=== PATIENT | male | born 1965 ===

== ENCOUNTER 2016-09-04 15:10 | Inpatient (IN) ==
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
[2016-09-04] MEDS ORDERED: ONDANSETRON 4 MG/2 ML VIAL IV PRN (16:31)
[2016-09-04] MEDS ORDERED: MORPHINE 2 MG/1 ML SYRINGE IV PRN (16:31)
[2016-09-04] MEDS ORDERED: GLUCAGON 1 MG VIAL IM PRN (16:31)
[2016-09-04] MEDS ORDERED: DEXTROSE 50% 25 GM/50 ML VIAL IV PRN (16:31)
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
[2016-09-04] MEDS ORDERED: SENNA 8.6 MG TABLET PO PRN (17:39)
--- NOTE | 2016-09-04 17:49 | XRay Report ---
Portable chest. Indication: Shortness of breath comparison: Exam from outside, earlier today. The heart is enlarged. The pulmonary vasculature is prominent. The lung carbajal are free of infiltrate. No pneumothorax or pleural effusion. Impression: Cardiomegaly and venous congestion. PROCEDURE INTERPRETED AT [facility] DEPARTMENT OF RADIOLOGY Final Report Signed by: Dr. Jackelin Durant
[2016-09-04 18:32] LABS: Troponin I Only < 0.015 NG/ML (0.00-0.045)
[2016-09-04] MEDS: ENOXAPARIN 40 MG/0.4 ML SYRINGE SUBCUT SCH (19:12)
[2016-09-04] MEDS: FUROSEMIDE 40 MG/4 ML VIAL IV SCH (19:12)
[2016-09-04] MEDS: CARVEDILOL 3.125 MG TABLET PO SCH (20:48)
[2016-09-04] MEDS: ATORVASTATIN 40 MG TABLET PO SCH (20:48)
[2016-09-04] MEDS: PREGABALIN 75 MG CAPSULE PO SCH (20:48)
[2016-09-04] MEDS: INSULIN LISPRO 100 UNIT/ML SUBCUT SCH (20:49)
[2016-09-05 01:19] LABS: Troponin I Only < 0.015 NG/ML (0.00-0.045)
[2016-09-05 06:13] LABS: Troponin I Only < 0.015 NG/ML (0.00-0.045)
[2016-09-05 06:29] LABS: Calcium 8.6 MG/DL (8.5-10.1); Magnesium 2.3 MG/DL (1.8-2.4); Osmolality,Calculated 279.3 MOS/KG (273-304); Potassium 3.8 MMOL/L (3.5-5.1); Risk Ratio 3.65; Thyroid Stimulating Hormone 3.29 uIU/ml (0.358-3.74)
--- NOTE | 2016-09-05 07:20 | EKG Report ---
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
[2016-09-05] MEDS ORDERED: MAGNESIUM SULF RIDER 2 GM in PREMIX 1 EACH IV PRN (07:24)
[2016-09-05] MEDS ORDERED: diphenhydrAMINE CAP 25 MG CAPSULE PO ONE (07:24)
[2016-09-05] MEDS ORDERED: DIAZEPAM 5 MG TABLET PO ONE (07:24)
[2016-09-05] MEDS ORDERED: POTASSIUM CHLORIDE RIDER 10 MEQ in PREMIX 1 EACH IV PRN (07:24)
[2016-09-05 07:29] LABS: Basophils % 0.3 % (0.0-0.8); Eosinophils # 0.2 10*3/uL (0.0-0.87); Eosinophils % 2.3 % (0.00-10.9); Immature Granulocytes % 0.7 %; Immature Granulocytes Absolute 0.05 #; Lymphocytes # 1.5 10*3/uL (1.4-4.0); Lymphocytes % 20.2 % (21.2-54.2); Mean Corpuscular HGB Conc 34.3 GM/DL (32-36); Mean Corpuscular Hemoglobin 32 PG (27-34); Mean Corpuscular Volume 93.3 FL (87-102); Mean Platelet Volume 10.2 FL (9.6-12.0); Monocytes # 0.8 10*3/uL (0.11-0.8); Monocytes % 10.2 % (1.7-12.7); Neutrophils # 4.9 10*3/uL (1.4-7.4); Neutrophils % 66.3 % (38.7-73.9); Platelet Count 239 T/CUMM (130-400); Red Blood Count 3.75 MC/CUMM (3.8-5.5); Red Cell Distribution Width 12.8 % (9.3-17.3); White Blood Count 7.4 T/CUMM (4-12)
[2016-09-05 07:37] LABS: PT Patient Result 10.8 SECS
[2016-09-05 08:06] LABS: Calcium 8.6 MG/DL (8.5-10.1); Magnesium 2.2 MG/DL (1.8-2.4); Osmolality,Calculated 278.4 MOS/KG (273-304); Potassium 3.9 MMOL/L (3.5-5.1)
[2016-09-05] MEDS: INSULIN LISPRO 100 UNIT/ML SUBCUT SCH ×4 (08:18→20:13)
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
[2016-09-05] MEDS ORDERED: POTASSIUM CHLORIDE 10 MEQ TABLET PO SCH (09:00)
[2016-09-05] MEDS ORDERED: PANTOPRAZOLE 40 MG TABLET PO SCH (09:00)
[2016-09-05] MEDS: CLOPIDOGREL 75 MG TABLET PO SCH (09:19)
[2016-09-05] MEDS: PREGABALIN 75 MG CAPSULE PO SCH ×2 (09:19→20:12)
[2016-09-05] MEDS: ASPIRIN EC 81 MG TABLET PO SCH (09:19)
[2016-09-05] MEDS: NITROGLYCERIN 2% OINT 1 INCH/GM PACK TOP SCH ×3 (09:19→20:13)
[2016-09-05] MEDS: FUROSEMIDE 40 MG/4 ML VIAL IV SCH (09:19)
[2016-09-05] MEDS: CARVEDILOL 3.125 MG TABLET PO SCH ×2 (09:19→20:12)
[2016-09-05] MEDS: PANTOPRAZOLE 40 MG TABLET PO SCH (09:21)
[2016-09-05] MEDS ORDERED: LIDOCAINE 1% 20 ML VIAL ONE (10:49)
[2016-09-05] MEDS ORDERED: HEPARIN/NACL 0.9% 2 UNITS/ML 1,000 ML IV ONE (10:49)
[2016-09-05] MEDS ORDERED: SODIUM CHLORIDE 0.9% 1,000 ML IV SCH (11:30)
[2016-09-05] MEDS ORDERED: PROPOFOL 200 MG/20 ML VIAL IV ONE (11:31)
[2016-09-05] MEDS ORDERED: LIDOCAINE 100 MG/5 ML SYRINGE ONE (11:31)
[2016-09-05] MEDS ORDERED: ETOMIDATE 20 MG/10 ML VIAL IV ONE (11:31)
[2016-09-05] MEDS ORDERED: VERAPAMIL 5 MG/2 ML VIAL ONE (11:49)
[2016-09-05] MEDS ORDERED: NITROGLYCERIN DRIP 50 MG/250 ML BOTTLE IV ONE (11:49)
--- NOTE | 2016-09-05 12:20 | Cardiac Catheterization ---
Date of Procedure:: 09/05/16 Procedure: CLINICAL HISTORY: The patient has a history of morbid obesity and coronary artery disease with chest pain symptoms. He is physically to large for noninvasive cardiac assessment, weighing greater than 450 pounds, and is proceeding to cardiac catheterization via the right radial approach for definitive coronary artery assessment and possible revascularization. PROCEDURES PERFORMED: 1. Right radial percutaneous arteriotomy 2. Left heart catheterization 3. Resting hemodynamics 4. Left ventriculography. 5. Coronary arteriography 6. Hemoband placement DESCRIPTION OF PROCEDURE: After obtaining informed consent, the patient was taken to the operations label clerk, prepped and draped in the usual sterile manner. We accessed the right radial artery using modified Seldinger technique in the usual fashion. We placed a 6-Ind[place]ian slim sheath without difficulty. We then used a Tig catheter to engage the right coronary and left main coronary arteries to perform angiography in multiple orthogonal views. There were no problems or complications during the procedure. We then used an angled pigtail catheter to perform a left heart catheterization with left ventriculogram and pressure measurement in the usual fashion. After removing the catheter, we placed a HemoBand and removed the sheath without difficulty. There were no problems during the case. HEMODYNAMICS: Please see the accompanying data sheet. CORONARIES: The left main coronary artery is a large-caliber vessel which trifurcates into the left anterior descending left circumflex flexion ramus intermedius branches. The left main coronary artery is angiographically free of significant obstructive disease. The left circumflex coronary artery is a moderate to large caliber vessel which gives off to obtuse marginal branches. There is a stent in the distal vessel which is patent. There are mild luminal irregularities in this vessel but no significant focal obstruction is seen. The ramus intermedius branch is a moderate to large caliber vessel which courses over the anterolateral wall. The ramus intermedius is angiographically free of significant obstructive disease. The left anterior descending is a moderate to large caliber vessel which gives off a small to moderate size diagonal branch. The left anterior descending coronary artery is angiographically free of significant obstructive disease. The right coronary artery is a large-caliber vessel which gives of the posterior descending artery and the posterior lateral system. The right coronary artery is angiographically free of significant obstructive disease. LEFT VENTRICULOGRAPHY: Left ventriculogram shows left ventricular ejection fraction of approximately 55-60% with normal regional wall motion. IMPRESSION: 1. There is no significant obstructive coronary artery disease at this time. The patient's previous circumflex stent is patent. 2. Normal left ventricular ejection fraction. PLAN: The patient can be transferred back to his room for recovery. From a cardiac standpoint, he should be stable for discharge later today. Anesthesia: minimal conscious sedation, other (Because of the patient's morbid obesity and high risk for sedation, anesthesia manage his sedation.) Surgeon / Physician: Sam Kyle Estimated blood loss: minimal Disposition: ICU/CCU - Medications / Follow-up
--- NOTE | 2016-09-05 12:48 | Anesthesia Post-Op ---
Anesthesia Post OP - Post Ansesthetic Evaluation Patient seen in post op: Yes Resp: within normal limits CV: within normal limits Mental: within normal limits Temp: within normal limits Txka-Ku-Rkbrbavar: within normal limits Nausea and Vomiting: within normal limits Pain: within normal limits
--- NOTE | 2016-09-05 14:12 | ECHO Report ---
Romario Robins Exam Date: 09/05/2016 07:50 Referring Physician: Technologist: butch Peña ARDMS, RVT Age: 50 Ht (in): 68 Wt (lb): 458 Gender: M Exam Location: [facility] Echo Indications: Essential (primary) hypertension, Chest pain, unspecified, CHF, INDER, Pickwickian Syndrome BP: 132 / 67 HR: 70 Rhythm: Sinus Technical Quality: Very difficult study IMPRESSIONS This is a severely limited study secondary to the patient's morbid obesity with a weight of greater than 450 pounds. Normal left ventricular cavity size and function with left ventricular ejection fraction is estimated at 50-55%. No significant valvular heart disease is seen. MEASUREMENTS (Male / Female) Normal Values 2D ECHO LV Diastolic Diameter PLAX 5.5 cm 4.2 - 5.9 / 3.9 - 5.3 cm LV Systolic Diameter PLAX 4.7 cm LV Fractional Shortening PLAX 13.9 % IVS Diastolic Thickness 1.5 cm 0.6 - 1.0 / 0.6 - 0.9 cm LVPW Diastolic Thickness 1.6 cm 0.6 - 1.0 / 0.6 - 0.9 cm RV Internal Dim ED PLAX 4.3 cm Aortic Root Diameter 4.2 cm LA Systolic Diameter LX 4.3 cm 3.0 - 4.0 / 2.7 - 3.8 cm FINDINGS Left Ventricle Normal left ventricular cavity size and function with left ventricular ejection fraction is estimated at 50-55%. Right Ventricle Poorly visualized. Right Atrium Poorly visualized Left Atrium The left atrium is mildly enlarged. Mitral Valve Grossly normal mitral valve without significant stenosis or prolapse. There is no significant mitral regurgitation. Aortic Valve Grossly normal aortic valve. Tricuspid Valve Grossly normal tricuspid valve. Pulmonic Valve Morphologically normal pulmonic valve without significant stenosis. There is no pulmonic regurgitation. Pericardium Grossly normal pericardium without effusion. Aorta Poorly visualized Sam Kyle (Electronically Signed) Final Date: 05 September 2016 14:10
--- NOTE | 2016-09-05 15:22 | Hospitalist Progress Note ---
Assessment and Plan (1) Chest pain Status: Acute Assessment and plan: Status post heart cath normal may be discharged home in a.m. Current Visit: Yes (2) INDER (obstructive sleep apnea) Status: Chronic Assessment and plan: Dr. Hernandez has seen him and recommends a chinstrap. Current Visit: Yes (3) CHF exacerbation Status: Acute Assessment and plan: BNP only 18 and echocardiogram normal no evidence to suggest congestive heart failure. Current Visit: Yes (4) Pickwickian syndrome Status: Acute Current Visit: Yes (5) Hypertension Status: Chronic Assessment and plan: cont coreg Current Visit: Yes Hospitalist: Subjective Interval history: Patient has no evidence of significant coronary disease. Patient is compliant with his CPAP at night but Dr. Hernandez is going to get him a better fitting mask. Exam - Constitutional Vitals: Period Temp Pulse Resp BP Sys/Nielsen Pulse Ox Last 24 Hr 97.4 F-98.0 F 58-77 12-27 96-152/51-114 93-98 Exam: Heart Rate-[RRR] Lungs-[CTAB but diminished] GI-[+bs soft, NT obese] Ext-[1+ edema] Neuro [Motor 5/5], [alert and oriented times 3] psych [normal mood and affect] General [no acute distress] Results - Labs CBC & BMP: 09/05/16 07:22 09/05/16 07:22 Lab Results: I have reviewed the past 24 hour labs - Diagnostic Findings Procedure: Ultrasound: report reviewed by me (EF of 55%)
[2016-09-05] MEDS: ENOXAPARIN 40 MG/0.4 ML SYRINGE SUBCUT SCH (16:57)
[2016-09-05] MEDS: ATORVASTATIN 40 MG TABLET PO SCH (20:12)
[2016-09-06] MEDS: NITROGLYCERIN 2% OINT 1 INCH/GM PACK TOP SCH ×2 (03:35→08:22)
[2016-09-06 05:04] LABS: Basophils % 0.3 % (0.0-0.8); Eosinophils # 0.2 10*3/uL (0.0-0.87); Eosinophils % 2.7 % (0.00-10.9); Hematocrit 36.9 VOL% (42.0-52.0); Hemoglobin 12.4 GM/DL (14.0-18.0); Immature Granulocytes % 0.6 %; Immature Granulocytes Absolute 0.04 #; Lymphocytes # 1.4 10*3/uL (1.4-4.0); Lymphocytes % 19.3 % (21.2-54.2); Mean Corpuscular HGB Conc 33.6 GM/DL (32-36); Mean Corpuscular Hemoglobin 31 PG (27-34); Mean Corpuscular Volume 93.2 FL (87-102); Mean Platelet Volume 10.8 FL (9.6-12.0); Monocytes # 0.6 10*3/uL (0.11-0.8); Neutrophils # 4.8 10*3/uL (1.4-7.4); Neutrophils % 68.1 % (38.7-73.9); Platelet Count 254 T/CUMM (130-400); Red Blood Count 3.96 MC/CUMM (3.8-5.5); Red Cell Distribution Width 12.5 % (9.3-17.3)
[2016-09-06 05:37] LABS: Calcium 8.8 MG/DL (8.5-10.1); Magnesium 2.2 MG/DL (1.8-2.4); Osmolality,Calculated 280.3 MOS/KG (273-304); Potassium 3.7 MMOL/L (3.5-5.1)
[2016-09-06] MEDS: INSULIN LISPRO 100 UNIT/ML SUBCUT SCH (07:45)
[2016-09-06] MEDS: PANTOPRAZOLE 40 MG TABLET PO SCH (08:21)
[2016-09-06] MEDS: PREGABALIN 75 MG CAPSULE PO SCH (08:21)
[2016-09-06] MEDS: ASPIRIN EC 81 MG TABLET PO SCH (08:21)
[2016-09-06] MEDS: CLOPIDOGREL 75 MG TABLET PO SCH (08:21)
[2016-09-06] MEDS: CARVEDILOL 3.125 MG TABLET PO SCH (08:21)
--- NOTE | 2016-09-06 08:26 | Discharge Summary ---
Hospital Course - Hospital Course Hospital Course: 50-year-old morbidly obese [place] male resents to the emergency room and [facility] with complaints of shortness of breath and chest pain. Patient has severe morbid obesity and severe obstructive sleep apnea. He is compliant with his CPAP machine. The chest pain that he was describing was substernal with no radiation with the sort associated shortness of breath. He has had a stent in the past and is already on Plavix and aspirin. Dr. Kyle was consulted and entered into the [employer] [facility] as he was too obese to fit and the machine for a stress test. Heart cath showed no significant coronary artery disease. Patient will be discharged home today. BNP was 18 and her EF was 55- 60%. Patient will be discharged home to follow-up with [facility] Dr. Rivera. - Time spent with patient Time with patient DS: Less than 30 minutes (25 min) Diagnosis - Discharge Diagnosis (1) Chest pain Status: Acute (2) INDER (obstructive sleep apnea) Status: Chronic (3) CHF exacerbation Status: Acute (4) Pickwickian syndrome Status: Acute (5) Hypertension Status: Chronic Discharge Plan - Discharge Data Disposition: Disch To Home/Self Care Condition at Discharge: Stable Discharge Diet: heart healthy, low salt diet Activity: resume usual activities as tolerated Hygiene: no restrictions Weight Bearing at Discharge: full weight bearing - Discharge Medications Continue Potassium Chloride 10 meq PO DAILY Aspirin [Ecotrin] 81 mg PO DAILY Clopidogrel [Plavix] 75 mg PO DAILY #30 tablet Senna Tab [Senokot] 1 tablet PO DAILY PRN PRN Reason: Constipation Pantoprazole Tab [Protonix Tab] 40 mg PO DAILY Atorvastatin [Lipitor] 40 mg PO BEDTIME Changed Carvedilol [Coreg] 3.125 mg PO BID #60 tablet Furosemide 40 mg PO QAM #0 Lisinopril 20 mg PO DAILY #0 Discontinued Naproxen Sodium [Aleve] 220 mg PO Q6HR PRN PRN Reason: knee pain - Follow Up or Referral Follow Up: Art Rivera MD [Physician] - 2 Weeks [facility] [Provider Group] - 2 Weeks - Forms/Instructions Exam - Constitutional Vitals: Period Temp Pulse Resp BP Sys/Nielsen Pulse Ox Last 24 Hr 96.9 F-98.0 F 56-74 15-25 96-139/51-86 93-98 General appearance: no acute distress, morbidly obese - Respiratory Respiratory exam: Present: clear to auscultation bilaterally. Absent: rhonchi, wheezes - Cardiovascular Cardiovascular exam: Present: regular rate and rhythm. Absent: systolic murmur - GI/Abdominal GI/Abdominal exam: Present: normal bowel sounds - Extremities Exam Extremities exam: Present: normal capillary refill, edema Discharge Results Procedures and tests throughout hospitalization: Pending Orders 09/04/16 18:46 MRSA Surveillence, Inf Control Routine 09/05/16 07:28 CL heart Routine Labs on day of discharge: Labs from last 24 hours 09/06/16 09/06/16 09/05/16 04:26 04:26 19:59 WBC 7.0 RBC 3.96 Hgb 12.4 L Hct 36.9 L MCV 93.2 MCH 31 MCHC 33.6 RDW 12.5 Plt Count 254 MPV 10.8 Neut % (Auto) 68.1 Lymph % (Auto) 19.3 L [place] % (Auto) 9.0 Eos % (Auto) 2.7 Baso % (Auto) 0.3 Neut # (Auto) 4.8 Lymph # (Auto) 1.4 [place] # (Auto) 0.6 Eos # (Auto) 0.2 Baso # (Auto) 0.0 Immature Gran % 0.6 Nucleated RBC % 0.0 Immature Gran # 0.04 Nucleated RBCs # 0.00 Sodium 141 Potassium 3.7 Chloride 105 Carbon Dioxide 29 Anion Gap 10.7 BUN 10 Creatinine 0.80 GFR Calculation 178 BUN/Creatinine Ratio 12.00 Glucose 118 H POC Glucose 112 H Calculated Osmolality 280.3 Calcium 8.8 Magnesium 2.2 B-Natriuretic Peptide 09/05/16 09/05/16 15:53 14:34 WBC RBC Hgb Hct MCV MCH MCHC RDW Plt Count MPV Neut % (Auto) Lymph % (Auto) [place] % (Auto) Eos % (Auto) Baso % (Auto) Neut # (Auto) Lymph # (Auto) [place] # (Auto) Eos # (Auto) Baso # (Auto) Immature Gran % Nucleated RBC % Immature Gran # Nucleated RBCs # Sodium Potassium Chloride Carbon Dioxide Anion Gap BUN Creatinine GFR Calculation BUN/Creatinine Ratio Glucose POC Glucose 131 H Calculated Osmolality Calcium Magnesium B-Natriuretic Peptide 18 Preliminary micro results at discharge 07/20/17 18:46 MRSA Surveillance Culture - Preliminary Nasal Passage - Both Nares (Mrsa screen) No MRSA isolated. DS: Provider Date of admission: 09/04/16 16:31 Primary care physician: Betty Gama MD Attending physician on admission: Karey Parra MD Consults: 09/04/16 16:31 Consult to Physician [CONS] Routine Comment: angina Consulting Provider: Cardiology - [facility] Discharging clinician: Karey Parra MD
[2016-09-06 08:27] VITALS: BP 151/86
--- NOTE | 2016-09-08 12:41 | Physician Query Form ---
CLICK EDIT DOCUMENT TO SELECT QUERY ANSWER --> OK --> SIGN Jerrica Cullen RN, CCDS Certified Clinical [employer] Machine Operator W) [phone] (f) [phone] [email or web address] PROVIDERS: Make your selection(s) from the choices in EACH section by typing an "x" and enter comments in the comment section. Please use your independent medical judgment in providing your response. This request does not imply that any particular answer is desired or expected. CLINICAL INDICATORS: (Providers should not edit this section) The medical record indicates that the patient was admitted with chest pain, history of CHF, BNP of 18#, Left ventriculogram shows left ventricular ejection fraction of approximately 55-60% and the patient was treated with Lasix 40 mg on the . Please provide further specificity regarding CHF. TYPE: ( ) Systolic (HFrEF - heart failure with reduced systolic function/EF) ( ) Diastolic (HFpEF - heart failure with preserved systolic function/EF) ( ) Combined Systolic/Diastolic ( ) Other, please specify: ( ) Clinically unable to determine (x) The patient does NOT have CHF COMMENTS: PLEASE ALSO DOCUMENT RESPONSE IN PROGRESS NOTES AND/OR DISCHARGE SUMMARY Use of terms such as suspected, likely, or probable (associated with a specific diagnosis that is being evaluated, monitored, or treated as if it exists) are acceptable and can be restated in the discharge summary if not ruled out. MTDD
== END 2016-09-06 09:45 | disposition home or self-care (01) | DRG 287 ==
LOC: EDUNIT# → N.ED 15:10 → N.EDINP 16:31 → N.CC 17:36
PROVIDERS: ADMIT Internal Medicine; ATTEND Internal Medicine
PROC: CLCCHCL (ICD-10-PCS; 2016-09-05 11:45)